=== PATIENT | male | born 1960 | race Caucasian/White ===

== ENCOUNTER → 2017-08-14 | Outpatient (CLI) | payer OTHER ==
[~2017-08-14] MED LIST: AMITRIPTYLINE H25 M2 PO; DILAUDID 2 MG TA2 MG PO; FLOMAX0.4 MG PO; LANTUS100 UNIT/M SUBQ; LISINOPRIL20 MG PO; NORCO 10-325 T1 EACH PO; NOVOLOG100 UNIT/1 SUBQ
--- NOTE | ~2017-08-14 | EKG ---
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
== END ==
LOC: LITH 06:36
DX: N20.0 Calculus of kidney (principal); Z95.1 Presence of aortocoronary bypass graft; Z98.890 Other specified postprocedural states

== ENCOUNTER → 2017-12-03 | Outpatient (CLI) | payer OTHER | END | disposition home or self-care (01) | LOC: LITH 09:41 | DX: N20.1 Calculus of ureter (principal); I25.2 Old myocardial infarction; G43.909 Migraine, unspecified, not intractable, without status migrainosus; Z98.890 Other specified postprocedural states; Z95.5 Presence of coronary angioplasty implant and graft; Z79.899 Other long term (current) drug therapy ==